=== PATIENT | male | born 1960 | race African-American/Black ===

== ENCOUNTER 2017-09-10 16:01 | Emergency (ER) | payer OTHER ==
[~2017-09-10] VITALS: Ht 180.3 cm; Wt 103.0 kg
[~2017-09-10 16:01] MED LIST: AMOX500T PO; HTN MED
[2017-09-10 16:21] VITALS: BP 169/85; PULSE 97; RESP 16; TEMP 99.1; O2SAT 97
[2017-09-10] MEDS ORDERED: XARE10TA PO (16:40)
[2017-09-10] MEDS ORDERED: LISI-515 PO (16:40)
--- NOTE | 2017-09-10 17:17 | PD ---
HPI . Left ear pain Chief Complaint: ENT Complaint Time Seen by Provider: 16:56 Travel History International Travel<30 days: No Contact w/Intl Traveler<30days: No Traveled to known affect area: No History of Present Illness HPI 56-year-old male patient presents emergency department for evaluation of left ear pain that started 6 days ago. Patient denies any previous history of chronic ear pain or infections. Patient denies any other physiological symptoms outside the left ear pain/pressure. Patient denies any fevers, chills, nausea, vomiting, chest pain, shortness breath. The pain is localized in the left ear and feels like pressure. The patient has a cardiac history of A. fib and hypertension. PFSH Past Medical History Hx Anticoagulant Therapy: Yes (XARELTO) Atrial Fibrillation: Yes Cardiovascular Problems: Yes (AFIB, HTN) Diminished Hearing: No Hypertension: Yes Immunizations Current: No Tetanus Vaccination: Unknown Influenza Vaccination: Yes Past Surgical History Surgical History: No Previous Surgery Social History Alcohol Use: No Tobacco Use: No Substance Use: No Allergies-Medications (Allergen,Severity, Reaction): Coded Allergies: No Known Allergies (Verified , 09/10/17) Reported Meds & Prescriptions Reported Meds & Active Scripts Active Reported Lisinopril 20 Mg Tab 20 Mg PO DAILY Xarelto (Rivaroxaban) 10 Mg Tab 10 Mg PO DAILY Review of Systems Except as stated in HPI: all other systems reviewed are Neg Physical Exam Narrative GENERAL: Well-nourished, well-developed pleasant 56-year-old male patient in no acute distress. Nontoxic appearing. SKIN: Focused skin assessment warm/dry. HEAD: Normocephalic. Atraumatic. EYES: No scleral icterus. No injection or drainage. ENT: Mucosa pink and moist. No erythema or exudates. No uvular edema. No uvular , palatal, or tonsillar deviation. Airway patent. Nasal turbinates appear normal without nasal blood, purulent drainage or septal hematoma. EARS: Bilateral pinnae and external canals appear within normal limits. Right tympanic membranes without erythema, dullness or perforation. Left tympanic membrane is unable to be visualized at this time due to excessive amounts of waxy buildup. THROAT: No pharyngeal injection, exudates, or tonsillar hypertrophy. Airway is patent. NECK: Supple, trachea midline. No JVD or lymphadenopathy. CARDIOVASCULAR: Regular rate and rhythm without murmurs, gallops, or rubs. RESPIRATORY: Breath sounds equal bilaterally. No accessory muscle use. GASTROINTESTINAL: Abdomen soft, non-tender, nondistended. MUSCULOSKELETAL: No cyanosis, or edema. BACK: Nontender without obvious deformity. No CVA tenderness. Data Data Last Documented VS Vital Signs Date Time Temp Pulse Resp B/P (MAP) Pulse Ox O2 Delivery O2 Flow Rate FiO2 09/10/17 16:21 99.1 97 16 169/85 (113) 97 Orders Orders Ear Irrigation (09/10/17 17:10) [facility] Medical Decision Making Medical Screen Exam Complete: Yes Emergency Medical Condition: Yes Differential Diagnosis Differential diagnoses include but not limited to congestion, otitis media, clogged ear Narrative Course 56-year-old male patient presents emergency department for evaluation of left ear pain and pressure that started 6 days ago. Patient denies any fevers, chills, malaise. Patient denies any other physiological symptoms outside the left ear pressure/pain. The left tympanic membrane is unable to visualize due to the excessive amount of waxy buildup. The ears will be irrigated and reassessed. The left ear was irrigated and large amount of hardened wax removed. Patient reported immediate relief of pain and pressure in his left ear. After irrigation left tympanic membrane visualized and it was without erythema, dullness or perforation. Patient great full for care. Patient will be discharged home with instructions to follow-up with his primary care. Diagnosis Primary Impression: Congestion of left ear Patient Instructions: Earache (ED), General Instructions Additional Instructions: Please return to emergency department if your symptoms return or worsen. Follow up with your primary care provider. Stay hydrated. Don't put any foreign bodies in your ears. Disposition: 01 DISCHARGE HOME Condition: Stable [place] Palomo Sophia [facility] Sep 10, 2017 17:17
== END 2017-09-10 18:09 | disposition home or self-care (01) ==
LOC: PHEFT 16:01
DX: H83.8X2 Other specified diseases of left inner ear (principal)
CPT/HCPCS: 99283